=== PATIENT | male | born 1980 | race Caucasian/White ===

== ENCOUNTER 2024-12-23 11:24 | Emergency (ER) | payer SELFPAY ==
[2024-12-23] MEDS: Orphenadrine 60 MG/2 ML Inj IM ONE (11:57)
[2024-12-23] MEDS: Ketorolac 30 MG/ML SDV IM ONE (11:58)
== END 2024-12-23 12:09 | disposition home or self-care (01) ==
LOC: VM.ED 11:24
DX: M62.830 Muscle spasm of back (principal); Z79.899 Other long term (current) drug therapy
CPT/HCPCS: 96372; 99283; J1885; J2360